=== PATIENT | male | born 1965 | race Caucasian/White ===

== ENCOUNTER 2019-09-05 18:09 | Emergency (ER) | payer OTHER, MEDICARE ==
[~2019-09-05] VITALS: Ht 182.9 cm; Wt 90.7 kg
== END 2019-09-05 21:40 | disposition home or self-care (01) ==
LOC: ER 18:09
DX: S43.004A Unspecified dislocation of right shoulder joint, initial encounter (principal); Z88.2 Allergy status to sulfonamides; W18.39XA Other fall on same level, initial encounter
CPT/HCPCS: 23650; 73030; 99283-25; A9270